=== PATIENT | male | born 1950 | race Caucasian/White ===

== ENCOUNTER 2023-07-05 17:03 | Emergency (ER) | payer BC ==
[~2023-07-05] VITALS: Ht 185.4 cm; Wt 82.0 kg
[2023-07-05 17:18] VITALS: BP 122/73; PULSE 55; RESP 18; TEMP 97.8; O2SAT 100
== END 2023-07-05 18:39 | disposition home or self-care (01) ==
LOC: ER 17:05
DX: G56.21 Lesion of ulnar nerve, right upper limb (principal)
CPT/HCPCS: 29125; 73110; 99283